=== PATIENT | male | born 1975 | race African-American/Black ===

== ENCOUNTER 2021-08-16 01:55 | Emergency (ER) | payer OTHER, MEDICAID ==
[~2021-08-16] VITALS: Ht 175.3 cm; Wt 95.3 kg
[2021-08-16 02:05] VITALS: BP 136/78
--- NOTE | 2021-08-16 02:08 | NUR ---
TO LOBBY A/W BED AMBULATORY
--- NOTE | 2021-08-16 02:30 | NUR ---
PATIENT CALL TO BE SEEN BY [facility], NO RESPONSE PATIENT LEFT WITHOUT BEING SEEN BY DR. MIDDLETON. NO FURTHER CARE PROVIDED FOR PATIENT.
--- NOTE | 2021-08-16 02:35 | NUR ---
CALLED FOR THE SECOND TIME, NO RESPONSE
--- NOTE | 2021-08-16 02:46 | NUR ---
CALLED FOR THE THIRD TIME, NO RESPONSE
== END 2021-08-16 02:30 | disposition left against medical advice (07) ==
LOC: MED 01:55
DX: M54.9 Dorsalgia, unspecified (principal); Z53.21 Procedure and treatment not carried out due to patient leaving prior to being seen by health care provider